=== PATIENT | male | born 1985 | race Caucasian/White ===

== ENCOUNTER 2016-08-19 04:46 | Emergency (ER) | payer MEDICAID ==
[2016-08-19] MEDS ORDERED: KETOROLAC 60 MG/2 ML VIAL IM STA (04:53)
--- NOTE | 2016-08-19 04:58 | Emergency Department Record ---
History of Present Illness - General Chief complaint: Bite Insect/other Stated complaint: BUG BITE? Source: Patient Mode of Arrival: Ambulatory Limitations: No limitations - History of Present Illness Initial comments: 30 yo male presents to ED with a CC of a possible bug-bite to the left lower back that the patient reports starting hurting 3 hours ago. Patient denies trauma or injury to the back, denies fevers, chills, or urinary symptoms. Patient denies any history of CAR in the past, denies fevers, chills, or recent illness, and denies lower extremity weakness. Patient denies health problems at his baseline. Patient denies taking anything for his pain symptoms prior to arrival. MD complaint: Insect bite/sting Onset/Timin -: Hour(s) Location: Back Severity: Moderate Quality: Sharp Consistency: Constant Improves with: None Worsens with: None Context: None Associated symptoms: Denies other symptoms Treatments Prior to Arrival: None - Related Data Previous Rx's Medication Instructions Recorded Azithromycin [Zithromax] 250 mg PO DAILY #6 tab 08/19/16 Naproxen [Naprosyn] 500 mg PO Q12H #20 tab. 08/19/16 Allergies Allergy/AdvReac Type Severity Reaction Status Date / Time Tetanus Vaccines and Toxoid Allergy General Verified 02/18/16 21:20 [Tetanus Vaccines & Toxoid] body aches Review of Systems Constitutional: Denies: Chills, Fever, Malaise, Night sweats Eyes: Denies: Eye discharge, Eye pain ENT: Denies: Congestion, Ear pain, Epistaxis Respiratory: Denies: Cough, Dyspnea Cardiovascular: Denies: Chest pain, Dyspnea on exertion Endocrine: Denies: Fatigue, Heat or cold intolerance Gastrointestinal: Denies: Abdominal pain, Nausea, Vomiting Genitourinary: Denies: Incontinence, Retention Musculoskeletal: Reports: Back pain. Denies: Arthralgia, Gout, Joint swelling Skin: Reports: Other (possible bug bite). 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 negative: Conjunctival injection, Periorbital swelling, Periorbital tenderness, Scleral icterus - ENT Ear exam: negative: Auricular hematoma, Auricular trauma Nasal Exam: negative: Active bleeding, Discharge, Dried blood, Foreign body Mouth exam: negative: Drooling, Laceration, Muffled voice, Tongue elevation - Neck Neck exam: Normal inspection. negative: Meningismus, Tenderness - Respiratory Respiratory exam: Normal lung sounds bilaterally. negative: Rales, Respiratory distress, Rhonchi, Stridor - Cardiovascular Cardiovascular Exam: Regular rate, Normal rhythm, Normal heart sounds - GI/Abdominal GI/Abdominal exam: Soft. negative: Rebound, Rigid, Tenderness - Rectal Rectal exam: Deferred - exam: Deferred - Extremities Extremities exam: Normal inspection. negative: Calf tenderness, Pedal edema, Tenderness - Back Back exam: Reports: Other (1.0 cm circular lesion c/w ingrown hair to the area of pain (right lower lumbar region)). Denies: CVA tenderness (R), CVA tenderness (L), Paraspinal tenderness, Rash noted - Neurological Neurological exam: Alert, Normal gait, Oriented X3 - Psychiatric Psychiatric exam: Normal affect, Normal mood - Skin Skin exam: Normal color. negative: Abrasion Type of lesion: negative: abrasion Course - Reevaluation(s) Reevaluation #1: 08/19/16 05:40 Labs reviewed and are grossly unremarkable for an acute process. UDS positive for amphetamines, methamphetamines, cocaine, and cannibis. CT Abdomen and Pelvis: Left basilar air-space disease, otherwise negative. Patient was updated on all results, denies fevers, chills, or cough symptoms. Patient reports he is feeling much better following Toradol, and appears stable for discharge on Zithromax if pneumonia symptoms develop and Naprosyn for his pain symptoms. Patient denies IVDA, urinary retention, numbness, tingling, or weakness to the lower extremities, and UDS is negative for opiates. Patient has no clinical signs for spinal epidural abscess or spinal cord compression on examination. 08/19/16 05:48 Medical Decision Making - Lab Data Result diagrams: 08/19/16 05:17 08/19/16 05:17 Disposition Disposition: Discharge Clinical Impression: Back pain Qualifiers: Back pain location: thoracic back pain Chronicity: acute Back pain laterality: midline Qualified Code(s): M54.6 - Pain in thoracic spine Disposition: Home, Self-Care Condition: (2) Stable Instructions: Abscess (ED) Additional Instructions: Return to ED if your symptoms worsen or if you have any concerns. Naprosyn and Zithromax as directed. Follow-up with your family doctor in 3-5 days as directed. Prescriptions: Naproxen [Naprosyn] 500 mg PO Q12H #20 tab.dr Azithromycin [Zithromax] 250 mg PO DAILY #6 tab Forms: Patient Portal Access Time of Disposition: 05:01
[2016-08-19] MEDS ORDERED: KETOROLAC 30 MG/ML VIAL IVP ONE (05:08)
[2016-08-19 05:10] LABS: URINE APPEARANCE CLEAR; URINE BILIRUBIN NEGATIVE (NEGATIVE); URINE BLOOD NEGATIVE (NEGATIVE); URINE COLOR YELLOW; URINE GLUCOSE (UA) NEGATIVE (NEGATIVE); URINE KETONE NEGATIVE (NEGATIVE); URINE LEUKOCYTE ESTERASE NEGATIVE (NEGATIVE); URINE NITRITE NEGATIVE (NEGATIVE); URINE PROTEIN NEGATIVE (NEGATIVE); URINE UROBILINOGEN 0.2 E.U./dL (0.20 - 1.00)
[2016-08-19 05:15] LABS: BARBITURATE SCREEN URINE NOT DETECTED; BENZODIAZEPINE SCREEN URINE NOT DETECTED; METHADONE SCREEN URINE NOT DETECTED; OPIATE SCREEN URINE NOT DETECTED; THC SCREEN URINE DETECTED; TRICYCLIC ANTIDEPRESSANT SCRN NOT DETECTED
[2016-08-19 05:16] LABS: AMPHETAMINE SCREEN URINE DETECTED; COCAINE SCREEN URINE DETECTED; METHAMPHETAMINE SCREEN DETECTED; OXYCODONE SCREEN URINE NOT DETECTED; PHENCYCLIDINE SCREEN URINE NOT DETECTED; PROPOXYPHENE SCREEN URINE NOT DETECTED
[2016-08-19 05:29] LABS: BASO % 0.2 % (0-6); EOS % 0.2 % (0-6); HEMOGLOBIN 16.2 gm/dl (14.0-18.0); LYMPH % 16.3 % (16-45); MEAN CELL VOLUME 87.6 fl (81-97); MEAN CORPUSCULAR HEMOGLOBIN 30.9 pg (27-33); MEAN CORPUSCULAR HGB CONC 35.2 g/dl (32-36); MEAN PLATELET VOLUME 9.8 fl (7.4-10.4); MONO % 11.3 % (0-9); PLATELET COUNT 295 K/uL (130-400); RED BLOOD COUNT 5.25 M/uL (4.40-5.70); WHITE BLOOD COUNT W/O DIFF 8.3 K/uL (4.2-12.2)
[2016-08-19 05:39] LABS: ALB/GLOB RATIO 1.3 (1.1-1.8); ALBUMIN 4.8 gm/dL (3.5-5.0); ALKALINE PHOSPHATASE 77 U/L (38-126); ALT/SGPT 76 U/L (21-72); ANION GAP 12.7 (7-16); AST/SGOT 50 U/L (17-59); BILIRUBIN,TOTAL 0.93 mg/dL (0.2-1.3); BLOOD UREA NITROGEN 8 mg/dL (9-20); CARBON DIOXIDE 23.3 mmol/L (22-30); CREATININE 0.7 mg/dL (0.66-1.25); EST GLOMERULAR FILTRATION RATE > 60 ml/min; GLUCOSE,RANDOM 109 mg/dL (70-110); TOTAL PROTEIN 8.4 gm/dL (6.3-8.2)
--- NOTE | 2016-08-22 15:24 | CT SCAN REPORT ---
EXAM: CT OF THE ABDOMEN AND PELVIS WITHOUT CONTRAST HISTORY: MID BACK PAIN SINCE 0300 HOURS. TECHNIQUE: Thin collimation helical CT examination of the abdomen and pelvis was performed without oral or intravenous contrast administration for the express purpose of evaluating the renal collecting systems for obstructing calculi. Lack of oral and IV contrast utilization limits evaluation of the bowel and solid viscera respectively. Comparison: None. FINDINGS: There are patchy ground glass opacities in the posterior left lung base consistent with infiltrate or atelectasis. The visualized lung bases are otherwise clear and there is no pleural or pericardial effusion. The heart is not enlarged. The liver, spleen, pancreas and adrenal glands are normal in appearance. The gallbladder is unremarkable. No biliary ductal dilatation is identified. The kidneys are normal in size, position, and are smoothly marginated. No nephrolithiasis nor renal mass is seen. The renal collecting systems are not dilated. No calcification is noted along the expected course of either ureter. No intrinsic urinary bladder abnormality is seen. No pelvic mass, lymphadenopathy, or free pelvic fluid. There is a borderline enlarged lymph node in the right external iliac chain measuring 10 mm. No gross bowel dilatation or bowel wall thickening is seen. The appendix is not visualized though no inflammatory changes are noted in its expected location. There is minimal atherosclerotic calcification of the right common iliac artery near its bifurcation. The vasculature is otherwise unremarkable. No lytic or blastic bone lesion is seen. IMPRESSION: 1. PATCHY ALVEOLAR OPACITIES IN THE POSTERIOR LEFT LUNG BASE SUSPICIOUS FOR PNEUMONIA OR ATELECTASIS. 2. NO NEPHROLITHIASIS NOR OBSTRUCTIVE UROPATHY. 3. BORDERLINE ENLARGED LYMPH NODE SUSPECTED IN THE RIGHT EXTERNAL ILIAC CHAIN. THIS IS NONSPECIFIC THOUGH LIKELY REACTIVE. JOB NUMBER: [id number] [facility]
== END 2016-08-19 06:03 | disposition home or self-care (01) ==
LOC: ER 04:46
DX: M54.6 Pain in thoracic spine (principal); L73.1 Pseudofolliculitis barbae; Z79.899 Other long term (current) drug therapy
CPT/HCPCS: 74176; 80053; 80305; 81003; 85025; 96374; 99284; J1885